=== PATIENT | male | born 1980 | race Caucasian/White ===

== ENCOUNTER 2019-02-14 16:39 | Emergency (ER) | payer OTHER ==
--- NOTE | 2019-02-14 18:54 | C.PDOC ---
History Of Present Illness 38-year-old male presents to the ED c/o tinging sensation to left side of chest that follows left lateral chest dermatome x 2 days. Patient reports history of chicken pox as a child. He notes a small rash to the area. Patient reports discomfort is worse when his t-shirt of bed sheets touch the area. Patient denies fever, chills or history of Zoster. Time Seen by Provider: 02/14/19 17:08 Chief Complaint (Nursing): Chest Pain History Per: Patient History/Exam Limitations: no limitations Onset/Duration Of Symptoms: Days (2) Current Symptoms Are (Timing): Still Present Past Medical History Reviewed: Historical Data, Nursing Documentation, Vital Signs Vital Signs: Last Vital Signs Temp 98.5 F 02/14/19 16:45 Pulse 54 L 02/14/19 16:45 Resp 18 02/14/19 16:45 BP 137/88 02/14/19 16:45 Pulse Ox 96 02/14/19 16:45 Primary Care Provider: FAMILY PROVIDER,NO - Medical History PMH: No Chronic Diseases Surgical History: No Surg Hx Family History: States: Unknown Family Hx - Social History Hx Alcohol Use: No Hx Substance Use: No - Immunization History Hx Tetanus Toxoid Vaccination: No Hx Influenza Vaccination: No Hx Pneumococcal Vaccination: No Review Of Systems Cardiovascular: Positive for: Other (tingling sensation to left lateral chest, follows left lateral chest dermatome ) Skin: Positive for: Rash Physical Exam - Physical Exam Appears: Non-toxic, No Acute Distress Skin: Warm, Dry, Rash (small, patchy areas of light rash to left lateral chest dermatome consisting of T5-T6. nontender ) Head: Atraumatic, Normacephalic Eye(s): bilateral: Normal Inspection Oral Mucosa: Moist Neck: Supple Chest: Symmetrical, No Deformity, No Tenderness Cardiovascular: Rhythm Regular, No Murmur Respiratory: Normal Breath Sounds, No Rales, No Rhonchi, No Wheezing Gastrointestinal/Abdominal: Soft, No Tenderness, No Guarding, No Rebound Extremity: Normal ROM, Capillary Refill (less than 2 seconds ) Neurological/Psych: Oriented x3, Normal Speech, Normal Cognition ED Course And Treatment O2 Sat by Pulse Oximetry: 96 (on RA ) Pulse Ox Interpretation: Normal Progress Note: EKG ordered and reviewed. Medical Decision Making Medical Decision Making: probable early herpes zoster L chest wall dermatome start empiric tx opt f/u Disposition Doctor Will See Patient In The: Office Counseled Patient/Family Regarding: Studies Performed, Diagnosis - Disposition Referrals: [facility] [Outside] [facility] [Outside] [facility] [Outside] [facility] [Outside] Disposition: HOME/ ROUTINE Disposition Time: 18:54 Condition: GOOD Additional Instructions: Acyclovir 800 mg FIVE times per day for 7 days Motrin/Advil 400-600 mg every 6 hour as needed Tramadol 50 mg (narcotic) 1 tab every 4-6 hours for more severe pain /sleep Calamine lotion topically may help no scratching/hot showers/rubbing Expect vesicular rash to develop outpatient follow-up as needed. Prescriptions: Acyclovir [Zovirax] 800 mg PO 5XD 7 Days #56 tablet traMADol [Ultram] 50 mg PO Q6H PRN #20 tab PRN Reason: pain Instructions: Shingles (DC) Forms: [facility] (Japanese) - Clinical Impression Clinical Impression: Chest wall discomfort - Scribe Statement The provider has reviewed the documentation as recorded by the Scribe (Reshma Herzog) Provider Attestation: All medical record entries made by the Scribe were at my direction and personally dictated by me. I have reviewed the chart and agree that the record accurately reflects my personal performance of the history, physical exam, medical decision making, and the department course for this patient. I have also personally directed, reviewed, and agree with the discharge instructions and disposition.
[2019-02-14 19:02] VITALS: BP 128/84; PULSE 58; RESP 16; TEMP 98.2
[2019-02-14 22:01] VITALS: O2SAT 96
== END 2019-02-14 19:20 | disposition home or self-care (01) ==
LOC: C.ER 16:39
DX: R07.89 Other chest pain (principal)